=== PATIENT | male | born 1945 | race Caucasian/White ===

== ENCOUNTER → 2017-01-14 | Outpatient (CLI) | payer OTHER ==
[~2017-01-14] MED LIST: ASPIRIN CHEWABL81 MG PO; BYSTOLIC10 MG PO; CARDURA 2MG TAB2 MG PO; CELEBREX 100MG100 MG PO; COZAAR 50MG TAB50 MG PO; CRESTOR20 MG PO; DEPO-TESTO100 MG/1 M IM; FUROSEMIDE20 MG PO; GLUCOPHAGE 500500 MG PO; IMDUR ER TAB 3030 MG PO; K-TAB ER20 MEQ PO; NITROSTAT0.4 MG SL; NORVASC 5 MG TAB5 MG PO; PLAVIX 75 MG TA75 MG PO; PROTONIX40 MG PO; TRAMADOL HCL50 MG PO
[2017-01-14 11:20] LABS: HEMOGLOBIN 14.1 gm/dl (14.0-17.5); RED BLOOD COUNT 5.61 M/UL (4.20-5.50); WHITE BLOOD COUNT 4.5 K/UL (4.5-11.0)
== END ==
LOC: OPSV 08:21
PROVIDERS: Internal Medicine
DX: D50.9 Iron deficiency anemia, unspecified (principal); K90.9 Intestinal malabsorption, unspecified
CPT/HCPCS: 36415; 82728; 83540; 85027; 96365; J1756; J7050

== ENCOUNTER → 2017-02-17 | Outpatient (CLI) | payer OTHER ==
[2017-02-17 10:46] LABS: HEMOGLOBIN 13.3 gm/dl (14.0-17.5); RED BLOOD COUNT 5.08 M/UL (4.20-5.50); WHITE BLOOD COUNT 7.8 K/UL (4.5-11.0)
== END ==
LOC: OPSV 09:00
PROVIDERS: Internal Medicine
DX: D50.9 Iron deficiency anemia, unspecified (principal); K90.9 Intestinal malabsorption, unspecified
CPT/HCPCS: 36415; 82728; 83540; 85027; 96365; J1756; J7050

== ENCOUNTER → 2017-03-17 | Outpatient (CLI) | payer OTHER ==
[~2017-03-17] VITALS: Ht 179.1 cm; Wt 113.4 kg
[2017-03-17 10:21] LABS: HEMOGLOBIN 13.9 gm/dl (14.0-17.5); RED BLOOD COUNT 5.15 M/UL (4.20-5.50); WHITE BLOOD COUNT 5.5 K/UL (4.5-11.0)
== END ==
LOC: OPSV 09:35
PROVIDERS: Internal Medicine
DX: D50.9 Iron deficiency anemia, unspecified (principal); K90.9 Intestinal malabsorption, unspecified
CPT/HCPCS: 36415; 82728; 83540; 85027; 96365; J1756; J7050

== ENCOUNTER → 2017-04-06 | Outpatient (CLI) | payer OTHER ==
[~2017-04-06] VITALS: Ht 179.1 cm; Wt 113.4 kg
[2017-04-06 10:30] LABS: HEMOGLOBIN 14.6 gm/dl (14.0-17.5); RED BLOOD COUNT 5.34 M/UL (4.20-5.50); WHITE BLOOD COUNT 6.2 K/UL (4.5-11.0)
== END ==
LOC: OPSV 09:56
PROVIDERS: Internal Medicine
DX: D50.9 Iron deficiency anemia, unspecified (principal); K90.9 Intestinal malabsorption, unspecified
CPT/HCPCS: 36415; 82728; 83540; 85027; 96365; J1756; J7050

== ENCOUNTER → 2021-06-28 | Outpatient (CLI) | payer OTHER ==
[~2021-06-28] VITALS: Ht 177.8 cm; Wt 113.4 kg
[~2021-06-28] MED LIST changes: +ADULT LOW DOSE81 MG PO; +ANDROGEL1.25 GM TD; +COQ1050 MG PO; +MICROZIDE12.5 MG PO; +NORCO 7.5-3251 EACH PO; +NORVASC2.5 MG PO; +POTASSIUM GLUC500 MG PO; +ZINC50 MG PO; +ZOFRAN4 MG SL
[2021-06-28 14:03] LABS: HEMOGLOBIN 8.7 gm/dl (14.0-17.5); RED BLOOD COUNT 3.28 M/UL (4.20-5.50); WHITE BLOOD COUNT 5.1 K/UL (4.5-11.0)
== END ==
LOC: OPSV 12:36
PROVIDERS: Internal Medicine
DX: D50.9 Iron deficiency anemia, unspecified (principal); K90.9 Intestinal malabsorption, unspecified
CPT/HCPCS: 36415; 82728; 83540; 85025; 96365; J1756

== ENCOUNTER → 2021-07-01 | Outpatient (CLI) | payer OTHER ==
[2021-07-01 07:24] LABS: HEMOGLOBIN 8.8 gm/dl (14.0-17.5)
== END ==
LOC: LAB 06:44
PROVIDERS: Nurse Practitioner Family
DX: D58.2 Other hemoglobinopathies (principal); D50.9 Iron deficiency anemia, unspecified; K92.2 Gastrointestinal hemorrhage, unspecified
CPT/HCPCS: 36415; 36430; 85014; 85018; 86850; 86920; P9016

== ENCOUNTER → 2021-07-03 | Outpatient (CLI) | payer OTHER ==
[~2021-07-03] VITALS: Ht 177.8 cm; Wt 113.4 kg
== END ==
LOC: OPSV 06:36
DX: D50.9 Iron deficiency anemia, unspecified (principal); K90.9 Intestinal malabsorption, unspecified
CPT/HCPCS: 96365; J1756

== ENCOUNTER → 2021-07-11 | Outpatient (CLI) | payer OTHER | LOC: OPSV 07:00 | DX: D50.9 Iron deficiency anemia, unspecified (principal); K90.9 Intestinal malabsorption, unspecified | CPT/HCPCS: 96365; J1756 ==

== ENCOUNTER → 2021-07-18 | Outpatient (CLI) | payer OTHER ==
[~2021-07-18] VITALS: Ht 177.8 cm; Wt 113.4 kg
== END ==
LOC: OPSV 07:26
DX: D50.9 Iron deficiency anemia, unspecified (principal); K90.9 Intestinal malabsorption, unspecified
CPT/HCPCS: 96365; J1756

== ENCOUNTER → 2021-07-19 | Outpatient (CLI) | payer OTHER ==
[2021-07-19 09:33] LABS: HEMOGLOBIN 10.9 gm/dl (14.0-17.5)
== END ==
LOC: OPSV 09:03
PROVIDERS: Nurse Practitioner Family
DX: D58.2 Other hemoglobinopathies (principal); D50.9 Iron deficiency anemia, unspecified; K92.2 Gastrointestinal hemorrhage, unspecified; I25.10 Atherosclerotic heart disease of native coronary artery without angina pectoris; R06.02 Shortness of breath; R42 Dizziness and giddiness
CPT/HCPCS: 36415; 85014; 85018; 86850; 86900; 86901

== ENCOUNTER → 2021-07-25 | Outpatient (CLI) | payer OTHER | LOC: OPSV 07-23 08:00 | DX: D50.9 Iron deficiency anemia, unspecified (principal); K90.9 Intestinal malabsorption, unspecified | CPT/HCPCS: G0463 ==

== ENCOUNTER → 2021-08-15 | Outpatient (CLI) | payer OTHER ==
[~2021-08-15] VITALS: Ht 177.8 cm; Wt 113.4 kg
== END ==
LOC: OPSV 08:00
DX: D50.9 Iron deficiency anemia, unspecified (principal); K90.9 Intestinal malabsorption, unspecified
CPT/HCPCS: 96365; J1756

== ENCOUNTER → 2021-10-08 | Outpatient (CLI) | payer OTHER ==
[2021-10-08 15:45] LABS: RED BLOOD COUNT 3.04 M/UL (4.20-5.50); WHITE BLOOD COUNT 5.4 K/UL (4.5-11.0)
== END ==
LOC: LAB 15:18
PROVIDERS: Internal Medicine
DX: E11.65 Type 2 diabetes mellitus with hyperglycemia (principal); E78.5 Hyperlipidemia, unspecified; I10 Essential (primary) hypertension; D50.9 Iron deficiency anemia, unspecified; K90.9 Intestinal malabsorption, unspecified
CPT/HCPCS: 85025

== ENCOUNTER → 2021-10-21 | Outpatient (CLI) | payer OTHER ==
[~2021-10-21] VITALS: Ht 177.8 cm; Wt 113.4 kg
== END ==
LOC: OPSV 10-11 13:00
DX: D50.9 Iron deficiency anemia, unspecified (principal); K90.9 Intestinal malabsorption, unspecified
CPT/HCPCS: 96365; J1756

== ENCOUNTER → 2021-11-15 | Outpatient (CLI) | payer OTHER ==
[~2021-11-15] VITALS: Ht 177.8 cm; Wt 113.4 kg
== END ==
LOC: OPSV 14:21
DX: K90.9 Intestinal malabsorption, unspecified (principal); D50.0 Iron deficiency anemia secondary to blood loss (chronic)
CPT/HCPCS: 96365; J1756

== ENCOUNTER → 2021-12-16 | Outpatient (CLI) | payer OTHER ==
[~2021-12-16] VITALS: Ht 177.8 cm; Wt 113.4 kg
== END ==
LOC: OPSV 08:49
DX: D50.9 Iron deficiency anemia, unspecified (principal); K90.9 Intestinal malabsorption, unspecified
CPT/HCPCS: 96365; 96375; J1756

== ENCOUNTER → 2022-02-10 | Outpatient (CLI) | payer OTHER ==
[~2022-02-10] VITALS: Ht 177.8 cm; Wt 113.4 kg
== END ==
LOC: OPSV 09:52
DX: D50.9 Iron deficiency anemia, unspecified (principal); K90.9 Intestinal malabsorption, unspecified
CPT/HCPCS: 96365; J1756

== ENCOUNTER → 2022-06-02 | Outpatient (CLI) | payer OTHER | LOC: HEART 5 08:15 | DX: I25.10 Atherosclerotic heart disease of native coronary artery without angina pectoris (principal); R07.89 Other chest pain; R06.02 Shortness of breath; E11.9 Type 2 diabetes mellitus without complications | CPT/HCPCS: 78452; A9502; J2785 ==

== ENCOUNTER → 2022-06-05 | Outpatient (CLI) | payer OTHER | LOC: KOH-I 15:46 | DX: E11.9 Type 2 diabetes mellitus without complications (principal); M19.072 Primary osteoarthritis, left ankle and foot | CPT/HCPCS: 73610 ==